=== PATIENT | female | born 1990 ===

== ENCOUNTER 2018-12-19 17:26 | Inpatient (IN) | payer BC ==
[2018-12-19 18:08] LABS: Urine Appearance Cloudy; Urine Bacteria 1+ (Absent); Urine Bilirubin Negative (Negative); Urine Blood 2+ (Negative); Urine Color Yellow; Urine Glucose Negative (Negative); Urine Ketones Trace (Negative); Urine Nitrite Negative (Negative); Urine Protein Negative (Negative); Urine Red Blood Cell Trace(0-2/hpf) (Absent); Urine Squamous Epithelial Cell Present (Absent); Urine Urobilinogen Negative (Negative); Urine White Blood Cell 1+(6-10/hpf) (Absent)
[2018-12-19] MEDS ORDERED: Lactated Ringers 1000 ML Bag* 1,000 ML IV ONE ×2 (18:09→22:52)
[2018-12-19] MEDS ORDERED: Buffered Lidocaine 1% SYRIN* 1 ML/SYRINGE INTRADERM ONE (18:09)
--- NOTE | 2018-12-19 18:17 | HP ---
General Information - Reason for Visit 28yo, IUP@41+6 in active labor - General Information Maternal Age: 28 Grav: 2 Para: 0 SAB: 1 IEA: 0 Estimated Due Date: 12/06/18 Determined By: LMP Gestational Age in Weeks/Days: 41+6 Maternal Blood Type and Rh: O Negative - Results this Serology/RPR Result: Non-Reactive Rubella Result: Immune HBsAg Result: Negative HIV Result: Negative GBS Culture Result: Negative Past Medical History Pertinent Past Medical History: Non-Contributory Past Medical History Comment: Depression/anxiety Broken elbow Past Surgical History Comment: repair of broken elbow Family History Comment: PGM: CHF PGF: stomach cancer MGM: pulmonary issues MGF: stroke - Antepartal Records Antepartal Records: Reviewed, 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010 Urine Protein Negative Urine Ketones Trace A Urine Blood 2+ A Urine Nitrate Negative Urine Bilirubin Negative Urine Urobilinogen Negative Ur Leukocyte Esterase 1+ A Urine WBC (Auto) 1+(6-10/hpf) A Urine RBC (Auto) Trace(0-2/hpf) Ur Squamous Epith Cells Present A Urine Bacteria 1+ A Urine Glucose Negative - Measurements Height: 5 ft 4 in Weight: 189 lb Weight in lbs: 189.211921 Body Mass Index (BMI): 32.4 Pre- Weight: 132 lb Weight Gained This : 57 lbs and 0 ozs - Exam Breast: Breast Exam Deferred CVA: No CVA Tenderness Extremities: No Edema Heart: Normal Rhythm/Heart Sounds HEENT: No Significant Findings Lungs: Clear Bilaterally Rectal: Rectal Exam Deferred Reflexes: DTR 2+ Thyroid: No Thyromegaly - Abdominal Exam Abdomen Exam: Non-Tender, Fundal Height Consistent with Dates - Ultrasound/Biophysical Profile Ultrasound Status: Not Done Targeted Exam Findings Estimated Weight: 8lbs Cervical Exam: 5cm Effacement: 100% Station: -1 Presenting Part: Vertex Membrane Status: Bulging EFM Findings - External Monitor Findings Baseline Heart Rate: 140 External Monitor Findings: Accelerations Present, No Pattern of Variable or Late Decelerations, Variability Moderate, Baseline Stable External Monitor Findings Comment: No evidence of metabolic acidemia Contractions: Regular, 45-90 Seconds - q3-5 mins Assessment/Plan - Assessment 28yo, IUP@41+6, here in active labor Rh negative, GBS negative Medical hx significant for HSV II No evidence of metabolic acidemia Regular contractions, coping well - Obstetrical Risk Factors Obstetrical Risk Factors: Post-Dates - Plan Plan: Admit - Anticipate Vaginal Delivery - Epidural prn, anticipate
[2018-12-19 18:19] LABS: Urine Benzodiazepine Screen None Detected (None Detect); Urine Opiates Screen None Detected (None Detect)
[2018-12-19 18:50] LABS: ABS Basophils 0.1 10^3/ul (0-0.2); ABS Monocytes 0.7 10^3/ul (0-0.8); ABS Neutrophils 12.5 10^3/ul (1.5-7.7); Eosinophil % 0.1 %; Hematocrit 39 % (35-47); Hemoglobin 13.4 g/dL (12.0-16.0); Lymphocyte % 7.2 %; Mean Corpuscular HGB Conc 34 g/dL (31-36); Mean Corpuscular Hemoglobin 32 pg (27-31); Mean Corpuscular Volume 95 fL (80-97); Platelet Count 233 10^3/uL (150-450); Red Blood Count 4.14 10^6 /uL (3.70-4.87); Red Cell Distribution Width 13 % (10-15); White Blood Count 14.3 10^3/uL (3.5-10.8)
[2018-12-19] MEDS ORDERED: Lactated Ringers 1000 ML Bag* 1,000 ML IV SCH ×3 (19:00→23:00)
[2018-12-19] MEDS ORDERED: Fosfomycin(NF) 3 GM PAK PO ONE (21:08)
[2018-12-19] MEDS ORDERED: OBEPIDURAL* 250 ML EPIDURAL ONE (21:47)
--- NOTE | 2018-12-19 21:58 | PN ---
Progress Note - Progress Note Date of Service: 12/19/18 Note: S: Called to bedside by RN. Requesting pain medication. O: VE: 6/100/-1, bulging bag FHR: 130, +accels, no decels, moderate variability Contractions: 2-3 minutes, palpate strong A: IUP@41+6 in active labor No evidence of metabolic acidemia Regular contractions Urine suggestive of UTI, pt also report urgency. P: Epidural now. Anesthesia aware Tx UTI with Augmentin Anticipate progression to
[2018-12-19] MEDS: Amoxicillin/Clavulanate TAB* 875 MG PO SCH (22:13)
[2018-12-19] MEDS ORDERED: Phenylephrine 40 MCG/ML SYRINGE IV PUSH PRN ×2 (22:52)
[2018-12-19] MEDS ORDERED: Famotidine TAB* 20 MG PO PRN (22:52)
[2018-12-19] MEDS ORDERED: Lactated Ringers 1000 ML Bag* 500 ML IV PRN ×2 (22:52)
[2018-12-19] MEDS ORDERED: Sodium Citrate/Citric Acid* 15 ML UDC PO PRN (22:52)
[2018-12-19] MEDS ORDERED: OBEPIDURAL* 250 ML EPIDURAL SCH (23:00)
--- NOTE | 2018-12-20 03:59 | PTEDU ---
Patient Name: VANCE AGUILLON VANCE AGUILLON selected video: Never Ever Shake a Baby to view on 12/20/2018 at 3:58:41 AM om [id number]
--- NOTE | 2018-12-20 04:33 | PN ---
Progress Note - Progress Note Date of Service: 12/20/18 Note: S: Pt comfortable with epidural. Feeling slight pressure with contractions. Per RN , pt with SROM 1-hr ago. O: VE: 9/100/0 FHR: 140, moderate variability, no decels Contractions: 2-3 minutes, palpate strong A: IUP@41+6 in active labor No evidence of metabolic acidemia Regular contractions Took first dose of abx P: Will ck pt in 1-1.5 hours, or prn Anticipate progression to
--- NOTE | 2018-12-20 08:32 | PN ---
Progress Note - Progress Note Date of Service: 12/20/18 Note: S: Assuming care of Yamileth flores 28 year-old at 42 weeks in labor s/p amniotomy. She is comfortable in bed with a small window in her epidural on her RLQ when she has a contraction but denies extreme discomfort. FOB at bedside and supportive. Ready to trial pushing. O: BP 116/70 HR 72 T 99.3 FHT 150bpm. Min-mod variability. Variable decels with pushing but rapid recovery to baseline UCs q 3-4 VE C/C/0 A: IUP at 42 weeks Cat II FHT: Doubt metabolic acidemia Trial of pushing P: Coached pt in pushing. Empowered nurse to continue pushing with pt. Reviewed frequent position changes. Close monitoring of status. Dr. Jaquez aware of pt presence and condition and is in house.
[2018-12-20] MEDS: Amoxicillin/Clavulanate TAB* 875 MG PO SCH ×2 (08:42→21:11)
[2018-12-20] MEDS ORDERED: Oxytocin in LR* 20 UNITS/1,000 ML BAG IVPB ONE (09:49)
[2018-12-20] MEDS ORDERED: Acetaminophen TAB* 325 MG PO PRN (11:37)
[2018-12-20] MEDS ORDERED: RHO D Immune Globulin (HUMAN)* 300 MCG = 1,500 I.U. INJ IM ONE (11:37)
[2018-12-20] MEDS ORDERED: Glycerin ADULT SUPP PR PRN (11:37)
--- NOTE | 2018-12-20 11:47 | PROCNOTE ---
[facility] OB: Delivery Note - Delivery A Date of : 12/20/18 Time of : 10:00 Saxon Sex: Female - "Yuliet" Saxon Weight at : 7 lb 7 oz Score 1 Minute: 9 Score 5 Minutes: 10 Gestational Age in Weeks and Days at Delivery: 42 Weeks and 0 Days Delivery Method: Spontaneous Vaginal Labor: Induced - via amniotomy Did Patient attempt ?: N/A, No Previous Amniotic Fluid: Meconium Estimated Blood Loss: 400 Anesthesia/Analgesia: CEI for Labor Anesthesia Comment: placed by Dr. Boles Delivered By: Nimesh Jo - Nursery Level of Nursery: Regular/Bedside - Perineum Perineal Injury: Vaginal Laceration - repaired with 3-0 Vicryl and 4-0 Rapide under local infiltration 1% lidocaine and epdiural analgesia. Anatomy restored and good hemostasis achieved. Pt tolerated well Perineal Injury Comment: 4cm vaginal and R sublabial laceration repaired - Events Delivery Events of Note: Pitocin Only After Delivery - Additional Delivery Notes Additional Delivery Notes: Pt admitted at 41-6/7 for post dates induction. Amniotomy led to onset active labor with expected progression to complete. Length of labor 18 hours, 5 min. Pushed x 1 hour, 53 min. liveborn female. Slow, controlled delivery of head. OA to SY. Shoulders followed easily. Saxon vigorous with spontaneous cry. HR>110bpm. Delivered to maternal abdomen. Cord clamped x 2 and cut by FOB when pulsations ceased. Spontaneous delivery intact placenta. Membranes complete. Brisk bleeding noted after delivery of placenta. Fundus firm to massage with IV pitocin infusing. Bleeding resolved. Repair as above. EBL 400mL. At time of note mother and infant in stable condition. Breast feeding initiated.
[2018-12-20] MEDS ORDERED: Lactated Ringers 1000 ML Bag* 1,000 ML IV SCH (12:00)
[2018-12-20] MEDS ORDERED: Oxytocin in LR* 20 UNITS/1,000 ML BAG IVPB SCH (12:00)
[2018-12-20] MEDS ORDERED: Simethicone TAB* 80 MG TAB.CHEW PO SCH (12:30)
[2018-12-20] MEDS ORDERED: Lidocaine 1% INJ* 10 MG/ML 30 ML SDV ONE (12:59)
[2018-12-20] MEDS: Witch Hazel PAD* JAR TOPICAL PRN (14:25)
[2018-12-20] MEDS: Dibucaine 1% 28.35 GM TUBE PR PRN (14:25)
[2018-12-20] MEDS: Docusate CAP* 100 MG PO SCH ×2 (14:33→21:12)
[2018-12-20] MEDS: Ibuprofen TAB* 600 MG PO SCH ×2 (14:33→21:12)
[2018-12-21 06:48] LABS: ABS Eosinophils 0.1 10^3/ul (0-0.6); ABS Lymphocytes 2.4 10^3/ul (1.0-4.8); ABS Monocytes 0.8 10^3/ul (0-0.8); ABS Neutrophils 10.7 10^3/ul (1.5-7.7); Eosinophil % 0.4 %; Hematocrit 30 % (35-47); Hemoglobin 10.5 g/dL (12.0-16.0); Lymphocyte % 17.2 %; Mean Corpuscular HGB Conc 35 g/dL (31-36); Mean Corpuscular Hemoglobin 34 pg (27-31); Mean Corpuscular Volume 97 fL (80-97); Mean Platelet Volume 8.5 fL (7.4-10.4); Platelet Count 172 10^3/uL (150-450); Red Blood Count 3.11 10^6 /uL (3.70-4.87); Red Cell Distribution Width 14 % (10-15); White Blood Count 14.1 10^3/uL (3.5-10.8)
[2018-12-21] MEDS: Ibuprofen TAB* 600 MG PO SCH ×4 (08:28→18:20)
[2018-12-21] MEDS: Docusate CAP* 100 MG PO SCH ×3 (08:29→20:46)
[2018-12-21] MEDS: Amoxicillin/Clavulanate TAB* 875 MG PO SCH ×2 (08:29→20:44)
[2018-12-21] MEDS: Witch Hazel PAD* JAR TOPICAL PRN (08:30)
[2018-12-21] MEDS: Dibucaine 1% 28.35 GM TUBE PR PRN (08:30)
[2018-12-21] MEDS ORDERED: Ferrous Gluconate TAB* 324 MG TAB PO SCH (09:00)
[2018-12-22] MEDS: Ibuprofen TAB* 600 MG PO SCH ×2 (07:34→08:29)
[2018-12-22] MEDS: Amoxicillin/Clavulanate TAB* 875 MG PO SCH (08:30)
[2018-12-22] MEDS: Docusate CAP* 100 MG PO SCH (08:30)
[2018-12-22 08:38] VITALS: BP 130/87
== END 2018-12-22 12:35 | disposition home or self-care (01) | DRG 560 ==
LOC: MCHOBOUT 17:26 → MCHOB 18:13
PROVIDERS: ADMIT Advanced Practice Midwife; ATTEND Midwife
PROC: 10E0XZZ Delivery of Products of Conception, External Approach (ICD-10-PCS; principal; 2018-12-20)
PROC: 10907ZC Drainage of Amniotic Fluid, Therapeutic from Products of Conception, Via Natural or Artificial Opening (ICD-10-PCS; 2018-12-20)
PROC: 0UQMXZZ Repair Vulva, External Approach (ICD-10-PCS; 2018-12-20)
PROC: 0UQGXZZ Repair Vagina, External Approach (ICD-10-PCS; 2018-12-20)
PROC: 4A1HXCZ Monitoring of Products of Conception, Cardiac Rate, External Approach (ICD-10-PCS; 2018-12-20)
DX: O48.0 Post-term pregnancy (principal); O75.3 Other infection during labor; Z37.0 Single live birth; O22.43 Hemorrhoids in pregnancy, third trimester; O77.0 Labor and delivery complicated by meconium in amniotic fluid; O70.0 First degree perineal laceration during delivery; O76 Abnormality in fetal heart rate and rhythm complicating labor and delivery; Z3A.41 41 weeks gestation of pregnancy; Z28.21 Immunization not carried out because of patient refusal; Z67.41 Type O blood, Rh negative
CPT/HCPCS: 36415; 80307; 81003; 81015; 84112; 85025; 85461; 86850; 86900; 86901; 87086; A9270-GY; J2790